=== PATIENT | male | born 1955 | race Caucasian/White ===

== ENCOUNTER 2018-05-18 08:00 | Outpatient (CLI) | payer BC ==
[~2018-05-18] VITALS: Ht 188 cm; Wt 90.7 kg
[~2018-05-18 08:00] MED LIST: AMLO1CAP8 PO
== END 2018-05-18 13:00 ==
LOC: PREOP 08:00
PROVIDERS: ATTEND Urology
DX: Z01.818 Encounter for other preprocedural examination (principal)

== ENCOUNTER 2018-05-24 05:55 | Inpatient (IN) | payer BC ==
[~2018-05-24] VITALS: Ht 188 cm; Wt 90.7 kg
[2018-05-24] MEDS: LACTATED RINGERS 1,000 ML IV PRN ×2 (06:15→08:40)
[2018-05-24 06:30] LABS: HEMOGLOBIN 15.8 G/DL (13.3-17.7); RED BLOOD COUNT 4.73 10^6/uL (4.35-5.85); RED CELL DISTRIBUTION WIDTH 12.5 % (10.0-14.5); WHITE BLOOD COUNT 5.6 10^3/uL (4.3-11.0)
[2018-05-24] MEDS ORDERED: proPOfol 200 MG/20 ML (DIPRIVAN) VIAL IV ONE (06:49)
[2018-05-24] MEDS ORDERED: ONDANSETRON 4 MG/2 ML (SDV) Z0FRAN ONE (06:49)
[2018-05-24] MEDS ORDERED: ROCURONIUM 10 MG/ML 5 ML SYRINGE IV ONE ×2 (06:49→08:38)
[2018-05-24] MEDS ORDERED: DEXAMETHASONE 10 MG/ML (DECADRON) 1 ML VIAL ONE (06:49)
[2018-05-24] MEDS ORDERED: LIDOCAINE PF 2% 5 ML (XYLOCAINE) VIAL ONE (06:49)
[2018-05-24] MEDS ORDERED: MIDAZOLAM 2 MG/2 ML (VERSED) VIAL ONE (06:49)
[2018-05-24] MEDS ORDERED: fentaNYL INJECTION 100 MCG/2 ML AMP ONE (06:49)
[2018-05-24] MEDS ORDERED: SEVOFLURANE (ULTANE) 15 ML INHAL SOLN ONE ×4 (06:49→09:01)
[2018-05-24 06:51] LABS: BUN/CREATININE RATIO 8; CALCIUM 9.9 MG/DL (8.5-10.1); CARBON DIOXIDE 24 MMOL/L (21-32); CHLORIDE 107 MMOL/L (98-107); GFR ESTIMATED > 60; GLUCOSE 100 MG/DL (70-105); POTASSIUM 4.3 MMOL/L (3.6-5.0); SODIUM 141 MMOL/L (135-145)
[2018-05-24] MEDS ORDERED: NS (IVPB) 50 ML ONE (06:55)
[2018-05-24] MEDS ORDERED: ceFAZolin 1,000 MG (ANCEF) VIAL ONE (06:55)
[2018-05-24] MEDS ORDERED: CITRIC ACID/SOB CIT (BICITRA) 30 ML UDC ONE (06:58)
[2018-05-24] MEDS ORDERED: CITRIC ACID/SOB CIT (BICITRA) 30 ML UDC PO ONE (07:00)
[2018-05-24] MEDS ORDERED: SUCCINYLCHOLINE INJ 100 MG/5 ML SYR ONE (07:03)
[2018-05-24] MEDS ORDERED: ceFAZolin 1 GM/NS 50 ML IVPB IV ONE ×2 (07:15)
[2018-05-24] MEDS ORDERED: AMLO10TA2 PO (07:18)
[2018-05-24] MEDS ORDERED: BUPIVACAINE 0.25% 30 ML (SENSORCAINE) VIAL ONE (07:22)
[2018-05-24] MEDS ORDERED: ONDANSETRON 4 MG/2 ML (SDV) Z0FRAN IV PRN (07:30)
[2018-05-24] MEDS ORDERED: DOCUSATE SODIUM 100 MG (COLACE) CAP PO PRN (07:30)
[2018-05-24] MEDS ORDERED: ANTACID SUSP 30 ML UDC (MYLANTA) PO PRN (07:30)
[2018-05-24] MEDS ORDERED: ZOLPIDEM 5 MG (AMBIEN) TAB PO PRN (07:30)
[2018-05-24] MEDS ORDERED: HYDROcodone/APAP 7.5 MG/325 MG (LORTAB, LORCET PLUS) TABLET PO PRN (07:30)
[2018-05-24] MEDS ORDERED: KETOROLAC 30 MG/ML VIAL IV PRN (07:30)
[2018-05-24] MEDS ORDERED: SIMETHICONE 80 MG (MYLICON) CHEW PO PRN (07:30)
[2018-05-24] MEDS ORDERED: BUPIVACAINE 0.25% 30 ML (SENSORCAINE) VIAL INJ ONE (08:00)
[2018-05-24] MEDS ORDERED: GLYCOPYRROLATE 0.2 MG/ML (ROBINUL) 2 ML VIAL ONE ×2 (09:04)
[2018-05-24] MEDS ORDERED: NEOSTIGMINE 1 MG/ML 5 ML SYRINGE ONE (09:04)
--- NOTE | 2018-05-24 09:27 | Progress Note-Post Operative ---
Post-Operative Progess Note Surgeon (s)/Hearth Feeder (s) Surgeon NATHALIA PAUL MD Hearth Feeder: None Pre-Operative Diagnosis PROSTATE CANCER Post-Operative Diagnosis Prostate cancer Procedure & Operative Findings Date of Procedure 05/24/18 Procedure Performed/Findings Robotic assisted laparoscopic prostatectomy, bilateral pelvic node dissection Anesthesia Type General endotracheal Estimated Blood Loss Estimated blood loss (mL): 50 Specimens/Packing Specimens Removed Prostate, right and let pelvic lymph nodes NATHALIA PAUL MD May 24, 2018 09:27
[2018-05-24] MEDS ORDERED: morphine INJ 10 MG/ML 1ML (SYR OR VIAL) ONE (09:40)
[2018-05-24] MEDS ORDERED: KETOROLAC 30 MG/ML VIAL ONE (09:40)
[2018-05-24] MEDS ORDERED: HYDROmorphone 1 MG/ML (DILAUDID) 1 ML SYRINGE IV PRN (09:45)
[2018-05-24] MEDS ORDERED: ONDANSETRON 4 MG/2 ML (SDV) Z0FRAN IVP PRN (09:45)
[2018-05-24] MEDS: morphine INJ 10 MG/ML 1ML (SYR OR VIAL) IVP PRN ×2 (09:48→10:00)
--- NOTE | 2018-05-24 10:18 | OPERATIVE REPORT ---
DATE OF SERVICE: 05/24/2018 PREOPERATIVE DIAGNOSIS: Adenocarcinoma of the prostate. POSTOPERATIVE DIAGNOSIS: Adenocarcinoma of the prostate. PROCEDURE PERFORMED: Robotic-assisted laparoscopic radical prostatectomy with bilateral pelvic lymph node dissection. SPECIMEN: Specimen removed prostate and right and left pelvic lymph nodes. COMPLICATIONS: None. DRAINS: None. ANESTHESIA: General endotracheal anesthesia. ESTIMATED BLOOD LOSS: 50 mL. INDICATIONS FOR PROCEDURE: The patient is a very pleasant 62-year-old gentleman, who has a history of unfavorable intermediate risk prostate cancer. Multiple options were discussed with him and he elected to proceed with robotic-assisted laparoscopic radical prostatectomy. DESCRIPTION OF PROCEDURE: After verifying informed consent and reviewing the risks and benefits of the procedure, the patient was taken to the operating suite and placed under general endotracheal anesthesia. He was moved to dorsal lithotomy position. His lower abdomen was clipped, prepped and draped in the usual fashion. A Veress needle was inserted through a 12 mm incision and placed supraumbilically. Saline drop test was performed and the abdomen was insufflated to 15 mmHg. A 12 mm camera port was then placed and the intra-abdominal contents were inspected. The robotic ports were placed, one in the right midclavicular line, one in the left midclavicular line, one in the left mid axillary line all the way to the level of the umbilicus. These were placed under direct visualization. An additional team assistant port was placed in the right lower quadrant as well as one in the right upper quadrant. The patient was then moved in to Trendelenburg position. The robot was docked. We began by performing the bilateral pelvic lymph node dissection. Peritoneotomies were made overlying the external iliac artery and vein. The lymphatic tissues were then elevated existing from the bifurcation of the common iliac artery down below the level of the obturator nerve consisting of the external iliac, obturator and internal iliac lymph node, packet was taken together as the pelvic lymph nodes. These were taken from the right and left and lymphatics were controlled using bipolar electrocautery. Bladder was then intraperitonealized and the anterior prostate was visualized. Endopelvic fascia was opened. There was a venous complex and it was ligated using 0 Vicryl suture. The bladder neck was then developed sharply. Once this was transected, seminal vesicles were elevated and the prostatic pedicles were divided. A partial neurovascular bundle preservation was performed leaving tissue in the prostate given his unfavorable intermediate risk disease. With this performed down to the level of the apex of the prostate, the urethra was circumferentially dissected. The urethra was transected. The specimen was placed in a specimen bag. The urethrovesical anastomosis was then performed in a standard fashion using 2-0 Monocryl suture. This was tied in the midline. A leak test was performed and no leak was identified. Following this, the specimen was repositioned through the midline port, which was extended for extraction. The site was then closed using a 0 Vicryl suture in interrupted figure-of-8 fashion. Skin was closed using Monocryl after infiltrating with local anesthesia. Dermabond was then applied and the patient was extubated and taken to PACU in stable condition. At the conclusion, all instruments and scrub counts were correct. Job ID: [id number] DocumentID: [id number] Dictated Date: 05/24/2018 09:32:29 Professional Tutor Date: 05/24/2018 10:18:04 Dictated By: Pepe Castillo MD
[2018-05-24] MEDS: OXYBUTYNIN (DITROPAN) 5 MG TAB PO SCH ×2 (10:59→21:50)
[2018-05-24] MEDS: LACTATED RINGERS 1,000 ML IV SCH ×3 (11:00→23:30)
[2018-05-24 12:00] VITALS: BP 103/64
[2018-05-24] MEDS: ceFAZolin 2 GM IV Premixed 50 ML IV SCH ×2 (14:28→21:57)
[2018-05-24 16:54] VITALS: BP 126/74
[2018-05-24 20:40] VITALS: BP 115/74
[2018-05-25] MEDS ORDERED: IBUPROFEN 600 MG (MOTRIN) TAB PO PRN
[2018-05-25 00:34] VITALS: BP 117/70
[2018-05-25 04:20] VITALS: BP 129/79
[2018-05-25] MEDS: LACTATED RINGERS 1,000 ML IV SCH (07:44)
--- NOTE | 2018-05-25 08:15 | Anesthesia-General Post-Op ---
General Patient Condition Mental Status/LOC: Same as Preop Cardiovascular: Satisfactory Nausea/Vomiting: Absent Respiratory: Satisfactory Pain: Controlled Complications: Absent Post Op Complications Complications None Follow Up Care/Instructions Patient Instructions None needed. Anesthesia/Patient Condition Patient Condition Patient is doing well, no complaints, stable vital signs, no apparent adverse anesthesia problems. No complications reported per nursing. YAMILETH MCCULLOUGH CRNA May 25, 2018 08:15
[2018-05-25 08:42] VITALS: BP 133/81
[2018-05-25] MEDS: OXYBUTYNIN (DITROPAN) 5 MG TAB PO SCH (08:56)
--- NOTE | 2018-05-25 09:01 | Progress Note-Urology ---
Progress Note-Urology Progress Notes/Assess & Plan Progress/Assessment & Plan DOING AND FEELING WELL. NO COMPLAINTS Final Diagnosis CA PROSTATE MANDI MCCANN MD May 25, 2018 9:01 am
--- NOTE | 2018-05-25 09:07 | Discharge Inst-Urology ---
Discharge Inst-Urology Discharge Medications New, Converted, or Re-newed RX: RX on Chart Patient Instructions/Follow Up Plan Discharge with [facility], leg bag daytime and large bag night time with instructions Patient to come to office Monday 06/04 9:30am to [facility]. Please make appointment to been seen in office 2 weeks after that. REST till then Showers, no baths Keep bowels soft and moving. Increase oral fluids for 48 hours and then as needed. Diet as tolerated. If questions or concerns contact your physician Or seek help at emergency department. MANDI MCCANN MD May 25, 2018 9:07 am
[2018-05-25 10:30] VITALS: BP 133/81
== END 2018-05-25 10:20 | disposition home or self-care (01) | DRG 708 ==
LOC: 4TH 05:55 → SDC 05:55 → UNDOADMIN 05:55 → 4TH 05:55 → SURG 05:56 → EDSTATUS 07:30 → 4TH 10:35 → SURG 10:35 → 4TH 05-25 10:20 → SDC 05-25 10:20 → UNDODISIN 05-25 10:20
PROVIDERS: ADMIT Urology; ATTEND Urology
PROC: 07TC0ZZ Resection of Pelvis Lymphatic, Open Approach (ICD-10-PCS; principal; 2018-05-24 07:16)
DX: C61 Malignant neoplasm of prostate (principal); I10 Essential (primary) hypertension; F17.220 Nicotine dependence, chewing tobacco, uncomplicated
CPT/HCPCS: 36415; 80048; 85027; 86850; 86900; 86901; 87081; 93005; 94664

== ENCOUNTER → 2021-05-14 | Outpatient (CLI) | payer BC ==
[~2021-05-14] MED LIST changes: +AMLO-251 PO; +AMLO-77 PO; -AMLO1CAP8 PO
--- NOTE | 2021-05-14 15:09 | Diagnostic Imaging Report ---
PROCEDURE: CT abdomen and pelvis without contrast. TECHNIQUE: Multiple contiguous axial images were obtained through the abdomen and pelvis without the use of intravenous contrast. Auto Exposure Controls were utilized during the CT exam to meet ALARA standards for radiation dose reduction. INDICATION: Hematuria. Patient has history of prostate carcinoma. COMPARISON: Correlation is made with prior CT from 02/20/2018. FINDINGS: The lung bases again demonstrate a retrocardiac gastric hernia which also contains portions of the pancreas. This is similar to prior exam. The stomach is nondistended. The liver shows diffuse low density consistent with hepatic steatosis. There are small stones within the gallbladder. No biliary ductal dilatation is seen. The pancreas and spleen are otherwise unremarkable. There is no adrenal mass. No renal calculi are identified. Parapelvic cysts, left greater, are again noted. Aorta is calcified but nonaneurysmal. No ureteral or bladder calculi are seen. There is no hydronephrosis. Bowel loops are normal in caliber without obstruction. Prostate now appears to be surgically absent. No pelvic or abdominal lymphadenopathy is detected. Bony structures are nonacute. IMPRESSION: 1. Status post prostatectomy. 2. Cholelithiasis. 3. Hepatic steatosis. Gastric and pancreatic hernia, similar to prior exam. 4. No evidence of urinary tract calculi or obstruction. Dictated by: Dictated on workstation # [id number]
== END ==
LOC: RAD 14:45
PROVIDERS: ATTEND Urology
DX: R31.29 Other microscopic hematuria (principal); K80.20 Calculus of gallbladder without cholecystitis without obstruction; K76.0 Fatty (change of) liver, not elsewhere classified; K46.9 Unspecified abdominal hernia without obstruction or gangrene; K86.9 Disease of pancreas, unspecified; Z90.79 Acquired absence of other genital organ(s)
CPT/HCPCS: 74176

== ENCOUNTER 2022-01-08 10:14 | Emergency (ER) | payer BC ==
[~2022-01-08] VITALS: Ht 187 cm; Wt 90.7 kg
[2022-01-08] MEDS ORDERED: PANTOPRAZOLE 40 MG (PROTONIX) VIAL IV ONE (10:30)
[2022-01-08] MEDS ORDERED: FAMOTIDINE 20MG/2ML IV (PEPCID) IVP ONE (10:30)
[2022-01-08] MEDS ORDERED: ONDANSETRON 4 MG/2 ML (SDV) Z0FRAN IVP ONE (10:30)
[2022-01-08 10:45] LABS: EOSINOPHILS % (AUTO) 1 % (0-10); HEMOGLOBIN 12.1 g/dL (13.3-17.7); MEAN PLATELET VOLUME 11.5 fL (9.0-12.2); MONOCYTES # (AUTO) 0.7 10^3/uL (0.0-1.0)
[2022-01-08 10:47] LABS: BASOPHILS # (AUTO) 0.1 10^3/uL (0.0-0.1); BASOPHILS % (AUTO) 1 % (0-10); HEMATOCRIT 36 % (40-54); LYMPHOCYTES # (AUTO) 1.9 10^3/uL (1.0-4.0); LYMPHOCYTES % (AUTO) 22 % (12-44); MEAN CORPUSCULAR HEMOGLOBIN 33 pg (25-34); MEAN CORPUSCULAR HGB CONC 34 g/dL (32-36); MEAN CORPUSCULAR VOLUME 99 fL (80-99); MONOCYTES % (AUTO) 8 % (0-12); NEUTROPHILS % (AUTO) 69 % (42-75); PLATELET COUNT 120 10^3/uL (130-400); WHITE BLOOD COUNT 8.7 10^3/uL (4.3-11.0)
[2022-01-08 10:53] LABS: ALBUMIN 3.1 GM/DL (3.2-4.5); POTASSIUM 3.7 MMOL/L (3.6-5.0)
[2022-01-08 10:54] LABS: CALCIUM 9.1 MG/DL (8.5-10.1)
[2022-01-08 10:55] LABS: TOTAL PROTEIN 7.3 GM/DL (6.4-8.2)
[2022-01-08 10:56] LABS: INR 1.2 (0.8-1.4); PROTHROMBIN TIME PATIENT 15.8 SEC (12.2-14.7)
--- NOTE | 2022-01-08 10:56 | ED GI ---
General Chief Complaint: Abdominal/GI Problems Stated Complaint: DARK STOOL, VOMITTING BLOOD Nursing Triage Note: pt presents to ed via pov from home with complaints of bloody vomiting 5-6x starting yesterday around 1100 and 10-12 dark brown/black stools. pt reprots he has not had any more emesis since late last night but continues to have dark stools. pt denies abdominal pain. Source of Information: Patient Exam Limitations: No Limitations (DARRYL ROMERO STUDENT) History of Present Illness Date Seen by Provider: Jan 08, 2022 Time Seen by Provider: 10:40 Initial Comments This is a 66 YO male with history of HTN and alcohol abuse who presents to the ER with vomiting blood since yesterday at about 11:00 am. He vomited 5 times yesterday, but none today. Also notes that his all of his BM's since then have been black. Denies any nausea or vomiting today and has not had any abdominal pain, urinary sx, or light-headedness. States these symptoms have never happened before and has no history of GERD or ulcers. Not on blood thinners. Drinks 6-10 beers daily for "his whole life", but no smoking or drug abuse. Timing/Duration: 1 Day Associated Symptoms: No Back Pain, No Chest Pain, No Fever/Chills (DARRYL ROMERO STUDENT) Allergies and Home Medications Allergies Coded Allergies: No Known Drug Allergies (Unverified , 05/17/18) Patient Home Medication List Home Medication List Reviewed: Yes (ANDREA MUNIZ MD) Amlodipine Besylate (Amlodipine Besylate) 10 Mg Tablet, 10 MG PO DAILY, (Reported) Entered as Reported by: BREE KENNEDY on 05/24/18 0718 Lorazepam (Ativan) 0.5 Mg Tablet, 1-2 TAB PO TID PRN for AGITATION Prescribed by: ANDREA PHAM on 01/08/22 1141 Ondansetron (Ondansetron Odt) 4 Mg Tab.rapdis, 4 MG SL Q4H PRN for NAUSEA/VOMITING Prescribed by: ANDREA PHAM on 01/08/22 1140 Pantoprazole Sodium (Protonix) 40 Mg Tablet.dr, 40 MG PO BID Prescribed by: ANDREA PHAM on 01/08/22 1140 Sucralfate (Carafate) 1 Gm Tablet, 1 GM PO QID Prescribed by: ANDREA PHAM on 01/08/22 1140 Review of Systems Review of Systems Constitutional: No chills, No dizziness, No fever EENTM: No Blurred Vision, No Double Vision Respiratory: Denies Cough, Denies Shortness of Air Cardiovascular: Denies Chest Pain, Denies Lightheadedness Gastrointestinal: See HPI; Denies Abdominal Pain; Vomiting Genitourinary: Denies Frequency, Denies Hematuria Musculoskeletal: No back pain, No neck pain Skin: No pruritus, No rash Psychiatric/Neurological: Denies Headache, Denies Numbness Endocrine: No Symptoms Reported Hematologic/Lymphatic: No Symptoms Reported (DARRYL ROMERO) All Other Systems Reviewed Negative Unless Noted: Yes (Negative excepted noted.) (DARRYL ROMERO) Past Tvgzllg-Qupubc-Gonxey Hx Patient Social History Tobacco Use?: No Smoking Status: Never a Smoker Substance use?: No Alcohol Use?: Yes Alcohol type: Beer Alcohol Frequency: Daily Pt feels they are or have been: No (DARRYL ROMERO) Immunizations Up To Date First/Initial COVID19 Vaccinat: 12/31/20 Second COVID19 Vaccination Alexys: 01/28/21 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: [employer] (DARRYL ROMERO) Seasonal Allergies Seasonal Allergies: No (DARRYL ROMERO) Past Medical History Surgery/Hospitalization HX: pmh: htn sx: prostate, tonsilectomy Surgeries: Yes (WART REMOVED OFF ARM) Respiratory: No Cardiac: Yes Hypertension Neurological: No Reproductive Disorders: No Sexually Transmitted Disease: No HIV/AIDS: No Prostate Problems Gastrointestinal: No Musculoskeletal: Yes Chronic Back Pain Endocrine: No Loss of Vision: Bilateral Hearing Impairment: Denies Cancer: Yes Prostate What Type of Treatment Did You: Surgical Intervention Psychosocial: No Integumentary: No Blood Disorders: No Adverse Reaction/Blood Tranf: No (DARRYL ROMERO) Physical Exam Vital Signs Vital Signs - First Documented 01/08/22 10:38 Temp 36.3 Pulse 99 Resp 18 B/P (MAP) 152/91 (111) Pulse Ox 97 (ANDREA MUNIZ MD) Vital Signs Capillary Refill : Less Than 3 Seconds (ROMERO,DARRYL MED STUDENT) Height/Weight/BMI Height: 6'2.00" Weight: 200lbs. 0.0oz. [id number]; 165.00 BMI Method: General Appearance: WD/WN, no apparent distress HEENT: PERRL/EOMI; No scleral icterus (R), No scleral icterus (L) Neck: full range of motion, normal inspection Respiratory: lungs clear, normal breath sounds, no respiratory distress, no accessory muscle use Cardiovascular: regular rate, rhythm, no edema Gastrointestinal: non tender, soft; No distended, No guarding, No rebound Extremities: normal range of motion, normal inspection Back: no CVA tenderness, no vertebral tenderness Neurologic/Psychiatric: no motor/sensory deficits, alert, normal mood/affect, oriented x 3 Skin: normal color, warm/dry (DARRYL ROMERO MED STUDENT) Progress/Results/Core Measures Results/Orders Lab Results Laboratory Tests Test 01/08/22 10:38 01/08/22 10:46 01/08/22 11:28 Range/Units White Blood Count 8.7 4.3-11.0 10^3/uL Red Blood Count 3.66 L 4.30-5.52 10^6/uL Hemoglobin 12.1 L 13.3-17.7 g/dL Hematocrit 36 L 40-54 % Mean Corpuscular Volume 99 80-99 fL Mean Corpuscular Hemoglobin 33 25-34 pg Mean Corpuscular Hemoglobin Concent 34 32-36 g/dL Red Cell Distribution Width 13.4 10.0-14.5 % Platelet Count 120 L 130-400 10^3/uL Mean Platelet Volume 11.5 9.0-12.2 fL Immature Granulocyte % (Auto) 0 % Neutrophils (%) (Auto) 69 42-75 % Lymphocytes (%) (Auto) 22 12-44 % Monocytes (%) (Auto) 8 0-12 % Eosinophils (%) (Auto) 1 0-10 % Basophils (%) (Auto) 1 0-10 % Neutrophils # (Auto) 6.0 1.8-7.8 10^3/uL Lymphocytes # (Auto) 1.9 1.0-4.0 10^3/uL Monocytes # (Auto) 0.7 0.0-1.0 10^3/uL Eosinophils # (Auto) 0.0 0.0-0.3 10^3/uL Basophils # (Auto) 0.1 0.0-0.1 10^3/uL Immature Granulocyte # (Auto) 0.0 0.0-0.1 10^3/uL Percent Immature Platelet Fraction 7.1 0.0-7.6 % Prothrombin Time 15.8 H 12.2-14.7 SEC INR Comment 1.2 0.8-1.4 Activated Partial Thromboplast Time 34 24-35 SEC Sodium Level 139 135-145 MMOL/L Potassium Level 3.7 3.6-5.0 MMOL/L Chloride Level 107 98-107 MMOL/L Carbon Dioxide Level 21 21-32 MMOL/L Anion Gap 11 5-14 MMOL/L Blood Urea Nitrogen 32 H 7-18 MG/DL Creatinine 1.05 0.60-1.30 MG/DL Estimat Glomerular Filtration Rate 78 BUN/Creatinine Ratio 30 Glucose Level 120 H 70-105 MG/DL Calcium Level 9.1 8.5-10.1 MG/DL Corrected Calcium 9.8 8.5-10.1 MG/DL Total Bilirubin 2.6 H 0.1-1.0 MG/DL Aspartate Amino Transf (AST/SGOT) 52 H 5-34 U/L Alanine Aminotransferase (ALT/SGPT) 26 0-55 U/L Alkaline Phosphatase 76 40-136 U/L Total Protein 7.3 6.4-8.2 GM/DL Albumin 3.1 L 3.2-4.5 GM/DL Lipase 26 8-78 U/L Serum Alcohol < 10 <10 MG/DL Urine Color YELLOW Urine Clarity CLEAR Urine pH 6.0 5-9 Urine Specific [place] 1.015 L 1.016-1.022 Urine Protein NEGATIVE NEGATIVE Urine Glucose (UA) NEGATIVE NEGATIVE Urine Ketones NEGATIVE NEGATIVE Urine Nitrite NEGATIVE NEGATIVE Urine Bilirubin NEGATIVE NEGATIVE Urine Urobilinogen 0.2 < = 1.0 MG/DL Urine Leukocyte Esterase NEGATIVE NEGATIVE Urine RBC (Auto) 2+ H NEGATIVE Urine RBC RARE /HPF Urine WBC NONE /HPF Urine Squamous Epithelial Cells NONE /HPF Urine Crystals NONE /LPF Urine Bacteria NEGATIVE /HPF Urine Casts NONE /LPF Urine Mucus NEGATIVE /LPF Urine Culture Indicated NO (ANDREA MUNIZ MD) My Orders Orders - ANDREA MUNIZ MD Cbc With Automated Diff (01/08/22 10:18) Comprehensive Metabolic Panel (01/08/22 10:18) Lipase (01/08/22 10:18) Protime With Inr (01/08/22 10:18) Partial Thromboplastin Time (01/08/22 10:18) Ua Culture If Indicated (01/08/22 10:18) Ed Iv/Invasive Line Start (01/08/22 10:18) Ondansetron Injection (Zofran Injectio (01/08/22 10:30) Pantoprazole Injection (Protonix Injecti (01/08/22 10:30) Famotidine Injection (Pepcid Injection) (01/08/22 10:30) Alcohol (01/08/22 10:40) (ANDREA MUNIZ MD) Medications Given in ED Current Medications Medications Dose Ordered Sig/Ladarius Route Start Time Stop Time Status Last Admin Dose Admin Famotidine 20 mg ONCE ONCE IVP 01/08/22 10:30 01/08/22 10:31 DC 01/08/22 10:53 20 MG Ondansetron HCl 8 mg ONCE ONCE IVP 01/08/22 10:30 01/08/22 10:31 DC 01/08/22 10:53 8 MG Pantoprazole 80 mg ONCE ONCE IV 01/08/22 10:30 01/08/22 10:31 DC 01/08/22 10:53 80 MG (ANDREA MUNIZ MD) Vital Signs/I&O 01/08/22 10:38 Temp 36.3 Pulse 99 Resp 18 B/P (MAP) 152/91 (111) Pulse Ox 97 (ANDREA MUNIZ MD) Blood Pressure Mean: 111 Progress Progress Note : Progress Note Patient was treated with Zofran and Protonix 80 mg IV as well as Pepcid. He had no nausea or vomiting while in the ER. Vital signs were stable. He did have a minor tremor but did not appear to be in significant withdrawal. His last alcoholic beverage was last night and his blood alcohol level was 0. We dis cussed the possible sources of bleeding including gastritis, gastric ulcer, and esophageal varices as well as the possibility of some degree of liver failure. All of these issues were related back to alcohol consumption, and he was strongly encouraged to either taper off of alcohol or stop drinking with the support of benzodiazepines. He elects to taper. He was advised strongly to do so in a structured fashion with the help of a third constitution party. He was also strongly encouraged to enlist the support of AA or a substance abuse counselor. Prescriptions were sent to [facility]. He was given referral information for Dr. Devi. Dr. Devi was notified. (ANDREA MUNIZ MD) Departure Impression Primary Impression: Upper GI bleed Additional Impressions: Nausea & vomiting Qualified Codes: R11.2 - Nausea with vomiting, unspecified Alcohol dependence Qualified Codes: F10.29 - Alcohol dependence with unspecified alcohol- induced disorder Disposition: HOME, SELF-CARE Condition: Stable Departure-Patient Inst. Decision time for Depature: 11:33 (ANDREA MUNIZ MD) Referrals: DRAKE DEVI RICK D MD (PCP/Family) Primary Care Physician Patient Instructions: ALCOHOL AND SUBSTANCE ABUSE, Alcohol Withdrawal, Gastr ointestinal Bleeding Add. Discharge Instructions: Gradually taper off your alcohol consumption by reducing intake by approximately 1 beer every 1 to 2 days. Use Ativan as prescribed if needed for withdrawal symptoms such as tremors, agitation, hallucinations, etc. Follow-up with your primary care provider soon as possible, preferably within the next few days. Follow-up with a surgeon such as Dr. Devi as soon as possible for endoscopy (scoping of your stomach). This is very important for determining the exact source of your bleeding and may affect the course of treatment. Dr. Devi's contact information is below for your convenience. Start your medications as prescribed and continue until otherwise instructed. Call with questions or concerns. Return to the ER if you have worsening symptoms. All discharge instructions reviewed with patient and/or family. Voiced understanding. Scripts Ondansetron (Ondansetron Odt) 4 Mg Tab.rapdis 4 MG SL Q4H PRN for NAUSEA/VOMITING, #10 TAB Prov: ANDREA MUNIZ MD 01/08/22 Sucralfate (Carafate) 1 Gm Tablet 1 GM PO QID, #120 TAB Crush and mix or dissolve into 5-10 mL water to make a slurry. Take 30 minutes before eating/drinking at meals and before bed. Prov: ANDREA MUNIZ MD 01/08/22 Lorazepam (Ativan) 0.5 Mg Tablet 1-2 TAB PO TID PRN for AGITATION, #5 TAB For withdrawal symptoms. Prov: ANDREA MUNIZ MD 01/08/22 Pantoprazole Sodium (Protonix) 40 Mg Tablet.dr 40 MG PO BID, #60 TAB Prov: ANDREA MUNIZ MD 01/08/22 Medical Student Attestation and Attending Note: I have personally interviewed and examined this patient along with Darryl Romero, MS 4. I have reviewed student documentation including history, physical, and assessments. I agree with the documentation except where otherwise noted. Exam: General: Alert, oriented, no acute distress, well developed HEENT: Normocephalic and atraumatic Heart: Regular rate and rhythm without murmur, oropharynx normal, mucous membranes moist Lungs: Clear to auscultation bilaterally with normal effort Abdomen: Soft, nontender, nondistended, normal bowel sounds Neuropsych: Alert, oriented, no focal deficits, mild tremor Skin: Warm and dry without rashes (ANDREA MUNIZ MD) Copy Copies To 1: YOVANI CASEY MD Copies To 2: DRAKE DEVI CHRISTINE MED STUDENT Jan 08, 2022 10:56 ANDREA MUNIZ MD Jan 08, 2022 11:37
[2022-01-08 10:57] LABS: BILIRUBIN,TOTAL 2.6 MG/DL (0.1-1.0)
[2022-01-08 10:59] LABS: CREATININE SERUM 1.05 MG/DL (0.60-1.30)
[2022-01-08 11:34] LABS: BILIRUBIN,URINE NEGATIVE (NEGATIVE); CLARITY,URINE CLEAR; COLOR,URINE YELLOW; GLUCOSE, URINE (UA) NEGATIVE (NEGATIVE); KETONES,URINE NEGATIVE (NEGATIVE); LEUKOCYTE ESTERASE ,URINE NEGATIVE (NEGATIVE); NITRITE,URINE NEGATIVE (NEGATIVE); PROTEIN,URINE NEGATIVE (NEGATIVE)
[2022-01-08 11:38] LABS: BACTERIA,URINE NEGATIVE /HPF; RBC,URINE RARE /HPF
[2022-01-08] MEDS ORDERED: LORA-404 PO (11:40)
[2022-01-08] MEDS ORDERED: ONDA4TAB11 SL (11:40)
[2022-01-08] MEDS ORDERED: PANT40TA2 PO (11:40)
[2022-01-08] MEDS ORDERED: SUCR1TAB36 PO (11:40)
[2022-01-08 11:52] VITALS: BP 142/87
== END 2022-01-08 11:52 | disposition home or self-care (01) ==
LOC: EDUNIT# 10:14 → ER 10:15
DX: K92.2 Gastrointestinal hemorrhage, unspecified (principal); F10.20 Alcohol dependence, uncomplicated
CPT/HCPCS: 80053; 81000; 83690; 85025; 85610; 85730; 99284; G0480; 36415; 80320

== ENCOUNTER 2022-01-27 05:40 | Outpatient (CLI) | payer BC ==
[~2022-01-27] VITALS: Ht 182.9 cm; Wt 88.0 kg
[~2022-01-27 05:40] MED LIST changes: +LORA-404 PO; +ONDA4TAB11 SL; +PANT40TA2 PO; +SUCR1TAB36 PO
== END 2022-01-27 12:57 | disposition home or self-care (01) ==
LOC: PREOP 05:40
PROVIDERS: ATTEND Surgery
DX: Z01.818 Encounter for other preprocedural examination (principal)

== ENCOUNTER 2022-02-07 06:46 | Day surgery (SDC) | payer BC ==
[~2022-02-07] VITALS: Ht 183 cm; Wt 88.0 kg
[2022-02-07] MEDS ORDERED: LACTATED RINGERS 1,000 ML IV STA (06:56)
[2022-02-07] MEDS ORDERED: HURRICAINE EXT TUBE (BENZOCAINE) XX PRN (07:00)
[2022-02-07] MEDS ORDERED: LACTATED RINGERS 1,000 ML IV ONE (07:04)
[2022-02-07 07:15] VITALS: BP 145/90
[2022-02-07] MEDS ORDERED: MIDAZOLAM 2 MG/2 ML (VERSED) VIAL ONE (07:31)
[2022-02-07] MEDS ORDERED: PROPOFOL INJECTION 50 ML IV ONE (07:31)
--- NOTE | 2022-02-07 07:37 | Progress Note-Pre Operative ---
Pre-Operative Progress Note H&P Reviewed The H&P was reviewed, patient examined and no changes noted. Date Seen by Provider: Feb 07, 2022 Time Seen by Provider: 07:36 Date H&P Reviewed: Feb 07, 2022 Time H&P Reviewed: 07:36 Pre-Operative Diagnosis: hematemesis, melana DRAKE DEVI DO Feb 07, 2022 07:37
[2022-02-07] MEDS ORDERED: HURRICAINE EXT TUBE (BENZOCAINE) ONE (07:41)
[2022-02-07 08:37] VITALS: BP 102/55
--- NOTE | 2022-02-07 09:10 | Discharge Inst-Simple/Standard ---
Discharge Inst-Standard Patient Instructions/Follow Up Plan of Care/Instructions/FU: 2 weeks Jodee Activity as Tolerated: Yes Discharge Diet: Regular Diet DRAKE DEVI DO Feb 07, 2022 09:10
[2022-02-07 09:14] VITALS: BP 131/96
--- NOTE | 2022-02-07 09:27 | Anesthesia-General Post-Op ---
MAC Patient Condition Mental Status/LOC: Same as Preop Cardiovascular: Satisfactory Nausea/Vomiting: Absent Respiratory: Satisfactory Pain: Controlled Complications: Absent Post Op Complications Complications None Follow Up Care/Instructions Patient Instructions None needed. Anesthesiology Discharge Order Discharge Order Patient is doing well, no complaints, stable vital signs, no apparent adverse anesthesia problems. No complications reported per nursing. YAMILETH MCCULLOUGH CRNA Feb 07, 2022 09:27
--- NOTE | 2022-02-07 15:07 | OPERATIVE REPORT ---
DATE OF SERVICE: 02/07/2022 PREOPERATIVE DIAGNOSES: Hematemesis, melena. POSTOPERATIVE DIAGNOSES: Grade II esophageal varices, paraesophageal hernia, colon polyps, diverticulosis. PROCEDURE: Esophagoscopy and colonoscopy with snare polypectomy x1 and hot biopsy polypectomy x1. SURGEON: Drake Ellsworth DO ANESTHESIA: Per BODY ROLLING MACHINE TENDER. ESTIMATED BLOOD LOSS: None. COMPLICATIONS: None. INDICATIONS: The patient is a 66-year-old male, who had episode of hematemesis and melena, has daily alcohol use. He understands risks and benefits of procedure and wishes to proceed. Consent was signed in the chart. DESCRIPTION OF PROCEDURE: The patient was taken to the endoscopy suite, placed in left lateral recumbent position. Timeout was performed. Scope was inserted in the mouth, down the esophagus noting esophageal varices in the distal portion. Scope was then slowly inserted and noting appeared to be paraesophageal hernia, difficult going more distal with the scope, unable to go through the pylorus. The antrum had a normal appearance, maybe some slight erythema though. No evidence of any pathology that would be causing bleeding. Scope was retroflexed again noting a suggestion of a paraesophageal hernia. No other pathology. Scope was returned to its normal position, slowly withdrawn to distal esophagus, appearance of some grade II esophageal varices. Scope was then slowly retracted back until completely removed. Digital rectal exam was performed. No palpable polyps, masses or ulcerations. Scope was inserted in the rectum and advanced all the way to cecum with minimal difficulty. In the cecum, a larger polyp was present, which snare polypectomy was performed. This had to be transected with the snare in order to suction through the scope. Prep was adequate with irrigation and suction. Scope was then slowly retracted back. No other polyps, masses or ulcerations within the cecum, ascending, transverse colon. In the descending colon, a small polyp was present, which hot biopsy polypectomy was performed. Scope was then continuously retracted back noting a minimal amount of diverticulosis. Once in the rectum, scope was retroflexed noting no other pathology. Scope was returned to its normal position, slowly withdrawn until completely removed. The patient tolerated the procedure well without any complications, taken to recovery room in stable condition. RECOMMENDATIONS: The patient will need repeat colonoscopy in one year for reevaluation due to larger polyp in the cecum. We will recommend referral to gastroenterology for possible esophageal banding. If he has any worsening or change in condition, should be reevaluated at that time. Job ID: [id number] DocumentID: [id number] Dictated Date: 02/07/2022 09:22:46 Residential Mortgage Underwriter Date: 02/07/2022 15:06:31 Dictated By: DRAKE ELLSWORTH DO
== END 2022-02-07 09:20 | disposition home or self-care (01) ==
LOC: ENDO 06:46
PROVIDERS: ATTEND Surgery
DX: K92.0 Hematemesis (principal); K92.1 Melena; D12.0 Benign neoplasm of cecum; D12.4 Benign neoplasm of descending colon; I85.00 Esophageal varices without bleeding; K44.9 Diaphragmatic hernia without obstruction or gangrene; F10.10 Alcohol abuse, uncomplicated
CPT/HCPCS: 88305

== ENCOUNTER → 2022-05-09 | Outpatient (CLI) | payer BC ==
--- NOTE | 2022-05-09 08:37 | Diagnostic Imaging Report ---
INDICATION: HEMATEMESIS TECHNIQUE: Multiple real-time edge scale sonographic images of the abdomen. CORRELATION STUDY: None FINDINGS: LIVER: Liver length 16.6 cm. No focal lesion. There is normal, hepatopedal direction of flow within the main portal vein. GALLBLADDER: Negative for gallstones. Borderline gallbladder wall thickening at 0.3 cm. Slight irregularity is present. COMMON BILE DUCT: Nondilated at 0.5 cm. PANCREAS: Obscured by overlying bowel gas. SPLEEN: Unremarkable 11.8 x 4.6 x 4 cm. ABDOMINAL AORTA: Unremarkable. INFERIOR VENA CAVA: Limited in visualization. RIGHT KIDNEY: 10.8 x 4.6 x 3.4 cm. Unremarkable. LEFT KIDNEY: 11.4 x 4.3 x 5.0 cm. Unremarkable. OTHER: None. IMPRESSION: 1. Negative for gallstones. There is, however, presence of borderline gallbladder wall thickness with slightly irregular appearance. Nonspecific. No significant bile duct dilatation. Dictated by: Dictated on workstation # [id number]
== END ==
LOC: RAD 06:56
PROVIDERS: ATTEND Internal Medicine Gastroenterology
DX: K92.0 Hematemesis (principal)
CPT/HCPCS: 76700

== ENCOUNTER 2022-06-29 06:23 | Emergency (ER) | payer BC ==
[2022-06-29] MEDS ORDERED: OCTREOTIDE INJECTION 500 MCG in NS (IVPB) 99 ML IV STA (06:43)
[2022-06-29] MEDS ORDERED: OCTREOTIDE INJECTION 50 MCG in NS (IVPB) 50 ML IV ONE (06:45)
[2022-06-29] MEDS ORDERED: cefTRIAXone 1 GM PRE-MIX 50 ML IV ONE (06:45)
[2022-06-29] MEDS ORDERED: ONDANSETRON 4 MG/2 ML (SDV) Z0FRAN IVP ONE (06:45)
[2022-06-29] MEDS ORDERED: PANTOPRAZOLE 40 MG (PROTONIX) VIAL IV ONE (06:45)
--- NOTE | 2022-06-29 06:54 | ED GI ---
General Chief Complaint: Abdominal/GI Problems Stated Complaint: VOMITING W/BLOOD IN IT Nursing Triage Note: pt presents with c/o vomiting blood. pt reports coffee ground emesis four times this am. reports dark stools for two days. pt reports hx of ascities as well as esophogeal varicies. reports varicies are to be banded in june. Source of Information: Patient, Family Exam Limitations: No Limitations History of Present Illness Date Seen by Provider: Jun 29, 2022 Time Seen by Provider: 06:26 Initial Comments 67-year-old male with past medical history of liver cirrhosis secondary to alcohol use disorder with known esophageal varices coming in due to concerns for GI bleed. Starting last night he started having episodes of black vomit and dark stools for the past couple days. He has had 4 episodes of vomiting with most recent roughly 30 minutes prior to arrival. He does not take any blood thinners, rarely takes any type of NSAID, but does drink alcohol daily with his last drink yesterday evening after work. He has been seen in this hospital around 5 months ago for a GI bleed, had an upper and lower GI scope, and did have esophageal varices at that time. He also had a polyp in his colon. He has been following with a GI specialist in [place] at [facility] since then. He states that he is supposed to have variceal banding done soon, but has not as of yet. Denies any chest pain, shortness of breath, significant abdominal pain, current nausea, weakness, numbness, rash, headache, vision changes, fever, or any other concerns. Allergies and Home Medications Allergies Coded Allergies: No Known Drug Allergies (Unverified , 05/17/18) Patient Home Medication List Home Medication List Reviewed: Yes Lorazepam (Ativan) 0.5 Mg Tablet, 1-2 TAB PO TID PRN for AGITATION Prescribed by: ANDREA PHAM on 01/08/22 1141 Ondansetron (Ondansetron Odt) 4 Mg Tab.rapdis, 4 MG SL Q4H PRN for NAUSEA/VOMITING Prescribed by: ANDREA PHAM on 01/08/22 1140 Pantoprazole Sodium (Protonix) 40 Mg Tablet.dr, 40 MG PO BID Prescribed by: ANDREA PHAM on 01/08/22 1140 Sucralfate (Carafate) 1 Gm Tablet, 1 GM PO QID Prescribed by: ANDREA PHAM on 01/08/22 1140 Review of Systems Review of Systems Constitutional: No fever EENTM: No Blurred Vision Cardiovascular: Denies Chest Pain Gastrointestinal: Vomiting Genitourinary: Denies Burning Musculoskeletal: no symptoms reported Skin: no symptoms reported Psychiatric/Neurological: No Symptoms Reported Endocrine: No Symptoms Reported Hematologic/Lymphatic: No Symptoms Reported All Other Systems Reviewed Negative Unless Noted: Yes Past Ctixymt-Pcuzyv-Vlkvmv Hx Patient Social History Tobacco Use?: No Substance use?: No Alcohol Use?: Yes Alcohol type: Beer Alcohol Frequency: Daily Pt feels they are or have been: No Immunizations Up To Date Influenza Vaccine Up-to-Date: Yes; Up-to-Date First/Initial COVID19 Vaccinat: unknown date Second COVID19 Vaccination Alexys: unknown date Third COVID19 Vaccination Date: NO COVID19 Vaccine [employer]: [employer] Seasonal Allergies Seasonal Allergies: No Past Medical History Surgery/Hospitalization HX: pmh: htn sx: prostate, tonsilectomy Surgeries: Yes (WART REMOVED OFF ARM) Respiratory: No Cardiac: Yes High Cholesterol, Hypertension Neurological: No Reproductive Disorders: No Sexually Transmitted Disease: No HIV/AIDS: No Genitourinary: Yes Prostate Problems Gastrointestinal: No Musculoskeletal: Yes Chronic Back Pain Endocrine: No Loss of Vision: Bilateral Hearing Impairment: Denies Cancer: Yes Prostate What Type of Treatment Did You: Surgical Intervention Psychosocial: No Integumentary: No Blood Disorders: No Adverse Reaction/Blood Tranf: No Physical Exam Vital Signs Vital Signs - First Documented 06/29/22 06:42 Temp 36.9 Pulse 101 Resp 18 B/P (MAP) 124/55 (78) Pulse Ox 97 Capillary Refill : Height/Weight/BMI Height: 6'2.00" Weight: 200lbs. 0.0oz. [id number]; 26.27 BMI Method: General Appearance: WD/WN, no apparent distress HEENT: PERRL/EOMI, normal ENT inspection, pharynx normal Neck: non-tender, full range of motion, supple, normal inspection Respiratory: chest non-tender, lungs clear, normal breath sounds, no respiratory distress, no accessory muscle use Cardiovascular: no edema, no murmur, tachycardia Gastrointestinal: normal bowel sounds, non tender, soft; No distended, No guarding, No rebound Genital/Rectal: other (melenic stools with no hemorrhoids) Extremities: normal range of motion, non-tender, normal inspection, no pedal edema, no calf tenderness, normal capillary refill Back: normal inspection Neurologic/Psychiatric: no motor/sensory deficits, alert, normal mood/affect Skin: normal color, warm/dry Lymphatic: no adenopathy Focused Exam Lactate Level 06/29/22 06:58: Lactic Acid Level 1.54 Lactic Acid Level Laboratory Tests Test 06/29/22 06:58 Lactic Acid Level 1.54 MMOL/L (0.50-2.00) Progress/Results/Core Measures Results/Orders Lab Results Laboratory Tests Test 06/29/22 06:38 06/29/22 06:58 Range/Units White Blood Count 6.3 4.3-11.0 10^3/uL Red Blood Count 4.16 L 4.30-5.52 10^6/uL Hemoglobin 10.9 L 13.3-17.7 g/dL Hematocrit 34 L 40-54 % Mean Corpuscular Volume 81 80-99 fL Mean Corpuscular Hemoglobin 26 25-34 pg Mean Corpuscular Hemoglobin Concent 32 32-36 g/dL Red Cell Distribution Width 17.3 H 10.0-14.5 % Platelet Count 107 L 130-400 10^3/uL Mean Platelet Volume 11.9 9.0-12.2 fL Immature Granulocyte % (Auto) 0 % Neutrophils (%) (Auto) 58 42-75 % Lymphocytes (%) (Auto) 30 12-44 % Monocytes (%) (Auto) 10 0-12 % Eosinophils (%) (Auto) 1 0-10 % Basophils (%) (Auto) 1 0-10 % Neutrophils # (Auto) 3.7 1.8-7.8 10^3/uL Lymphocytes # (Auto) 1.9 1.0-4.0 10^3/uL Monocytes # (Auto) 0.6 0.0-1.0 10^3/uL Eosinophils # (Auto) 0.1 0.0-0.3 10^3/uL Basophils # (Auto) 0.0 0.0-0.1 10^3/uL Immature Granulocyte # (Auto) 0.0 0.0-0.1 10^3/uL Percent Immature Platelet Fraction 11.3 H 0.0-7.6 % Prothrombin Time 16.2 H 12.2-14.7 SEC INR Comment 1.3 0.8-1.4 Activated Partial Thromboplast Time 38 H 24-35 SEC Sodium Level 136 135-145 MMOL/L Potassium Level 4.2 3.6-5.0 MMOL/L Chloride Level 102 98-107 MMOL/L Carbon Dioxide Level 21 21-32 MMOL/L Anion Gap 13 5-14 MMOL/L Blood Urea Nitrogen 35 H 7-18 MG/DL Creatinine 1.05 0.60-1.30 MG/DL Estimat Glomerular Filtration Rate 77 BUN/Creatinine Ratio 33 Glucose Level 113 H 70-105 MG/DL Calcium Level 8.8 8.5-10.1 MG/DL Corrected Calcium 9.2 8.5-10.1 MG/DL Magnesium Level 1.9 1.6-2.4 MG/DL Total Bilirubin 2.6 H 0.1-1.0 MG/DL Aspartate Amino Transf (AST/SGOT) 41 H 5-34 U/L Alanine Aminotransferase (ALT/SGPT) 23 0-55 U/L Alkaline Phosphatase 80 40-136 U/L Total Protein 7.6 6.4-8.2 GM/DL Albumin 3.5 3.2-4.5 GM/DL Lipase 35 8-78 U/L Smear Scan YES Lactic Acid Level 1.54 0.50-2.00 MMOL/L My Orders Orders - BOBBY CATALAN MD Cbc With Automated Diff (06/29/22 06:43) Comprehensive Metabolic Panel (06/29/22 06:43) Lactic Acid Analyzer (06/29/22 06:43) Lipase (06/29/22 06:43) Magnesium (06/29/22 06:43) Protime With Inr (06/29/22 06:43) Partial Thromboplastin Time (06/29/22 06:43) Type And Screen (06/29/22 06:43) Ceftriaxone 1 Gm Pre-Mix (Rocephin 1 Gm (06/29/22 06:45) Pantoprazole Injection (Protonix Injecti (06/29/22 06:45) Octreotide Injection (Sandostatin Inje (06/29/22 06:45) Ns (Ivpb) (Sodium C... W/Octreotide Inj (06/29/22 06:43) Ondansetron Injection (Zofran Injectio (06/29/22 06:45) Medications Given in ED Current Medications Medications Dose Ordered Sig/Ladarius Route Start Time Stop Time Status Last Admin Dose Admin Ceftriaxone Sodium/Dextrose 50 ml @ 100 mls/hr ONCE ONCE IV 06/29/22 06:45 06/29/22 07:14 DC 06/29/22 07:24 100 MLS/HR Octreotide Acetate 50 mcg/ Sodium Chloride 51 ml @ 204 mls/hr ONCE ONCE IV 06/29/22 06:45 06/29/22 06:59 DC 06/29/22 07:09 204 MLS/HR Ondansetron HCl 4 mg ONCE ONCE IVP 06/29/22 06:45 06/29/22 06:49 DC 06/29/22 06:55 4 MG Pantoprazole 40 mg ONCE ONCE IV 06/29/22 06:45 06/29/22 06:49 DC 06/29/22 06:55 40 MG Vital Signs/I&O 06/29/22 06:42 Temp 36.9 Pulse 101 Resp 18 B/P (MAP) 124/55 (78) Pulse Ox 97 Blood Pressure Mean: 78 Progress Progress Note : Progress Note 67-year-old male with above history coming in due to concerns for GI bleed. ABCs were intact and vitals were stable on presentation although he is mildly tachycardic with a heart rate around 100. Physical exam with melenic stool on digital rectal exam. He had a soft and nontender abdomen. I have reviewed the patient's chart from roughly 5 months ago, including his GI scope upper and lower. He did have grade 2 esophageal varices at that time. He has continued to drink alcohol and does follow with a GI specialist at [facility]. I am concerned he is having an upper GI bleed, likely from the varices. An IV was placed, he was given ceftriaxone, Protonix, Zofran, and on octreotide bolus with drip was then started. Labs were significant for hemoglobin of 10.9, it was 12.1 roughly 5 months ago. INR is 1.3, creatinine 1.05, mild transaminitis, lactate normal. On reassess ment the patient has not had any episodes of vomiting since getting his medications here. Since we do not have a GI specialist that could do esophageal variceal banding, he would need to be transferred to a facility with this specialty. I contacted [facility] in [place] (patient preferred [place] where his GI specialist is, but they are at capacity) and the patient was excepted for transfer by Dr. Gordo Ramos for further evaluation and management. Departure Impression Primary Impression: Hematemesis Qualified Codes: K92.0 - Hematemesis Additional Impressions: Melena Esophageal varices Qualified Codes: I85.11 - Secondary esophageal varices with bleeding Liver cirrhosis, alcoholic Qualified Codes: K70.31 - Alcoholic cirrhosis of liver with ascites Disposition: XFER SHT-TRM HOSP Condition: Stable Transfer Transfer Reason: Exceeds level of care Time Spoke to Accepting Phy: 07:44 Transfer Progress Notes Contacted [facility] at 07:23 and they are at capacity. Contacted [facility] transfer line at 07:26 and they are contacting a physician to discuss transfer. Transfer line called back at 07:44 and the patient was accepted for transfer by Dr. Gordo Ramos. Awaiting a bed assignment at this time. Called back at 09:11, and they are still awaiting on a discharge before they have a bed placement. Called back at 09:55 and he has a bed assigned now and is ready for transport. I offered the patient ambulance given he is on an octreotide drip. The patient and his are adamant they would prefer to go via private vehicle. I discussed that we would need to stop the octreotide, pull his IV, and when he goes by private vehicle he would not have his vitals assessed, it is possible he could bleed out and . They accept the risk for this and would still prefer to go private vehicle. Transfer Time: 10:10 Transfer Facility: [facility] Method of Transfer: Private Vehicle Departure-Patient Inst. Referrals: TOMAS WEN DO (PCP/Family) Primary Care Physician BOBBY CATALAN MD Jun 29, 2022 06:54
[2022-06-29 06:56] LABS: HEMOGLOBIN 10.9 g/dL (13.3-17.7)
[2022-06-29 06:58] LABS: BASOPHILS % (AUTO) 1 % (0-10); EOSINOPHILS # (AUTO) 0.1 10^3/uL (0.0-0.3); EOSINOPHILS % (AUTO) 1 % (0-10); HEMATOCRIT 34 % (40-54); LYMPHOCYTES # (AUTO) 1.9 10^3/uL (1.0-4.0); LYMPHOCYTES % (AUTO) 30 % (12-44); MEAN CORPUSCULAR HEMOGLOBIN 26 pg (25-34); MEAN CORPUSCULAR HGB CONC 32 g/dL (32-36); MEAN CORPUSCULAR VOLUME 81 fL (80-99); MEAN PLATELET VOLUME 11.9 fL (9.0-12.2); MONOCYTES # (AUTO) 0.6 10^3/uL (0.0-1.0); MONOCYTES % (AUTO) 10 % (0-12); NEUTROPHILS # (AUTO) 3.7 10^3/uL (1.8-7.8); NEUTROPHILS % (AUTO) 58 % (42-75); PLATELET COUNT 107 10^3/uL (130-400); WHITE BLOOD COUNT 6.3 10^3/uL (4.3-11.0)
[2022-06-29 07:01] LABS: INR 1.3 (0.8-1.4); PROTHROMBIN TIME PATIENT 16.2 SEC (12.2-14.7)
[2022-06-29 07:04] LABS: ALBUMIN 3.5 GM/DL (3.2-4.5); POTASSIUM 4.2 MMOL/L (3.6-5.0)
[2022-06-29 07:05] LABS: CALCIUM 8.8 MG/DL (8.5-10.1)
[2022-06-29 07:06] LABS: TOTAL PROTEIN 7.6 GM/DL (6.4-8.2)
[2022-06-29 07:08] LABS: BILIRUBIN,TOTAL 2.6 MG/DL (0.1-1.0)
[2022-06-29 07:10] LABS: CREATININE SERUM 1.05 MG/DL (0.60-1.30)
[2022-06-29 07:11] LABS: SMEAR SCAN COMMENT YES
[2022-06-29 07:13] LABS: MAGNESIUM 1.9 MG/DL (1.6-2.4)
[2022-06-29 11:18] VITALS: BP 114/70
== END 2022-06-29 11:18 | disposition short-term general hospital (02) ==
LOC: EDUNIT# 06:23 → ER 06:27
DX: K70.30 Alcoholic cirrhosis of liver without ascites (principal); I85.00 Esophageal varices without bleeding; K92.1 Melena; K92.0 Hematemesis
CPT/HCPCS: 36415; 80053; 83605; 83690; 83735; 85025; 85610; 85730; 86850; 86900; 86901; 99291

== ENCOUNTER 2023-03-01 05:40 | Outpatient (CLI) | payer BC ==
[~2023-03-01] VITALS: Ht 182.9 cm; Wt 88.0 kg
== END 2023-03-03 10:12 | disposition home or self-care (01) ==
LOC: PREOP 05:40
PROVIDERS: ATTEND Surgery
DX: Z01.818 Encounter for other preprocedural examination (principal)